=== PATIENT | female | born 2005 | race Caucasian/White ===

== ENCOUNTER 2025-01-20 16:49 | Emergency (ER) | payer SELFPAY ==
[2025-01-20] MEDS ORDERED: PRENTAB9 PO (18:05)
== END 2025-01-20 18:12 | disposition admitted as inpatient to this hospital (09) ==
LOC: M ED 16:49
DX: Z53.21 Procedure and treatment not carried out due to patient leaving prior to being seen by health care provider (principal)

== ENCOUNTER 2025-01-20 17:15 | Outpatient (CLI) | payer OTHER ==
[~2025-01-20] VITALS: Ht 157.5 cm; Wt 53.6 kg
[2025-01-20 17:49] VITALS: BP 109/57
[2025-01-20] MEDS ORDERED: HOME MED LIST COMPLETE! XX SCH (18:05)
[2025-01-20] MEDS ORDERED: PRENTAB9 PO (18:05)
[2025-01-20] MEDS: ONDANSETRON 4MG/2ML VIAL IV PRN (18:08)
[2025-01-20] MEDS: LR 1,000 ML IV ONE (18:08)
[2025-01-20 18:36] LABS: BASO # 0.0 10^3/uL (0.0-0.2); BASO % 0.2 % (0.0-1.0); EOS # 0.0 10^3/uL (0.0-0.5); EOS % 0.0 % (0.0-3.0); LYMPH # 1.0 10^3/uL (1.5-5.0); LYMPH % 4.7 % (24.0-44.0); MONO # 0.4 10^3/uL (0.0-0.8); MONO % 2.0 % (2.0-8.0); NEUTROPHILS # 19.1 10^3/uL (1.5-8.5); NEUTROPHILS % 92.2 % (36.0-66.0); PLATELET COUNT, AUTOMATED 313 10^3/uL (150-450)
[2025-01-20 18:37] VITALS: BP 114/56
[2025-01-20] MEDS: LR 1,000 ML IV SCH (18:52)
[2025-01-20 18:57] LABS: ALT/SGPT 17 U/L (7.0-40); AST/SGOT 38 U/L (<34); CALCIUM LEVEL 9.4 MG/DL (8.5-10.1); CARBON DIOXIDE LEVEL 20 MMOL/L (20-31); CHLORIDE LEVEL 103 MMOL/L (98-107); CREATININE FOR GFR 0.48 MG/DL (0.55-1.30); GLOMERULAR FILTRATION RATE > 90.0 (>60); POTASSIUM SERUM 4.0 MMOL/L (3.5-5.1); SODIUM LEVEL 138 MMOL/L (136-145)
[2025-01-20 20:03] LABS: APPEARANCE, URINE HAZY (CLEAR); BACTERIA, URINE AUTO NEGATIVE (NEGATIVE); BILIRUBIN, URINE AUTO NEGATIVE (NEGATIVE); BLOOD, URINE BLOOD NEGATIVE (NEGATIVE); GLUCOSE, URINE (UA) AUTO NEGATIVE (NEGATIVE); KETONE, URINE AUTO 2+ mg/dL (NEGATIVE); LEUKOCYTE ESTERASE, URINE AUTO 3+ (NEGATIVE); MUCUS, URINE SMALL (NEGATIVE); NITRITE, URINE AUTO NEGATIVE (NEGATIVE); PROTEIN, URINE AUTO NEGATIVE (NEGATIVE); RBC, URINE AUTO 1 /HPF (0-3); SPECIFIC GRAVITY URINE AUTO 1.017 (1.002-1.035); SQUAMOUS EPITHELIAL CELL UR AU 3 /HPF (0-6); UROBILINOGEN, URINE AUTO 0.2 mg/dL (0.0-2.0); WBC, URINE AUTO 3 /HPF (0-3)
[2025-01-20 20:26] VITALS: BP 119/70
[2025-01-20] MEDS: BETAMETHASONE SOLUSPAN 6 MG/ML 5 ML VIAL IM SCH (20:47)
[2025-01-20] MEDS: INDOMETHACIN 25 MG CAP PO ONE (20:57)
[2025-01-20] MEDS: MORPHINE 2 MG/ML 1 ML VIAL IV ONE (21:44)
[2025-01-20 23:18] VITALS: BP 110/69
[2025-01-21] MEDS: INDOMETHACIN 25 MG CAP PO SCH (03:22)
[2025-01-21 05:47] VITALS: BP 99/58
[2025-01-21 09:01] VITALS: BP 130/71
[2025-01-21 11:56] VITALS: BP 116/63
== END 2025-01-21 12:30 | disposition home or self-care (01) ==
LOC: M LDO 17:15
PROVIDERS: ATTEND Advanced Practice Midwife
DX: O21.8 Other vomiting complicating pregnancy (principal); O26.892 Other specified pregnancy related conditions, second trimester; R10.84 Generalized abdominal pain; R25.2 Cramp and spasm; Z3A.26 26 weeks gestation of pregnancy
CPT/HCPCS: 59025; 76817; 80053; 81001; 85025; 87081; 87486; 87581; 87633; 87798; 96360; 96361; 96372; 96374; G0463; J0702; J2405; J2550